=== PATIENT | female | born 1945 | race Two or more races ===

== ENCOUNTER 2018-09-05 01:16 | Emergency (ER) | payer OTHER ==
[~2018-09-05] VITALS: Ht 157.5 cm; Wt 90.7 kg
[2018-09-05 01:35] VITALS: Ht 157.5 cm; Wt 90.7 kg
[2018-09-05 02:14] LABS: UA SPECIFIC GRAVITY <=1.005 (1.005-1.035); microscopic required? YES; urine erythrocyte NEGATIVE (NEGATIVE)
[2018-09-05 02:20] LABS: CALCIUM 8.6 mg/dL (8.5-10.1); CARBON DIOXIDE 24.7 mmol/L (21-32); CHLORIDE SERUM 101 mmol/L (98-107); GLUCOSE SERUM 197 mg/dL (74-106); POTASSIUM SERUM 4.1 mmol/L (3.5-5.1); SODIUM SERUM 135 mmol/L (136-145)
[2018-09-05 02:25] LABS: ALKALINE PHOSPHATASE 56 U/L (46-116); ALT/SGPT 69 U/L (14-59); AST/SGOT 43 U/L (15-37); BILIRUBIN TOTAL 0.34 mg/dL (0.20-1.00); LIPASE 118 IU/L (73-393); TOTAL PROTEIN, SERUM 6.8 g/dL (6.4-8.2)
[2018-09-05 02:26] LABS: BASOPHIL % 0.1 % (0-2)
[2018-09-05 02:27] LABS: PLATELET COUNT 470 x10^3mcL (130-400); RED CELL DISTRIBUTION WIDTH 24.1 % (11.5-14.5)
[2018-09-05 02:44] LABS: rbc morphology (normal/abnorm) ABNORMAL (NORMAL); tear drop cell (dacryocyte) 1+
[2018-09-05 04:18] VITALS: BP 122/59
== END 2018-09-05 04:18 | disposition home or self-care (01) ==
LOC: ED 01:16
PROVIDERS: Emergency Medicine
DX: K56.7 Ileus, unspecified (principal); I10 Essential (primary) hypertension; E11.9 Type 2 diabetes mellitus without complications; E78.00 Pure hypercholesterolemia, unspecified; Z98.890 Other specified postprocedural states; Z88.6 Allergy status to analgesic agent; Z88.1 Allergy status to other antibiotic agents
CPT/HCPCS: J2270; J2405; J7030; Q9967

== ENCOUNTER 2018-09-26 | Emergency (ER) | payer OTHER | END 2018-09-26 03:35 | disposition home or self-care (01) | LOC: ED ==

== ENCOUNTER 2018-10-04 22:36 | Emergency (ER) | payer OTHER ==
[~2018-10-04] VITALS: Ht 157.5 cm; Wt 101.6 kg
[2018-10-04 23:02] VITALS: Ht 157.5 cm; Wt 101.6 kg
[2018-10-05 00:07] LABS: BASOPHIL % 0.4 % (0-2); PLATELET COUNT 330 x10^3mcL (130-400)
[2018-10-05 00:08] LABS: RED CELL DISTRIBUTION WIDTH 24.2 % (11.5-14.5)
[2018-10-05 00:12] LABS: CALCIUM 8.6 mg/dL (8.5-10.1); CARBON DIOXIDE 17.5 mmol/L (21-32); CHLORIDE SERUM 99 mmol/L (98-107); CREATININE SERUM 1.1 mg/dL (0.6-1.0); GLUCOSE SERUM 214 mg/dL (74-106); POTASSIUM SERUM 4.4 mmol/L (3.5-5.1); SODIUM SERUM 132 mmol/L (136-145)
[2018-10-05 00:17] LABS: ALBUMIN 3.4 g/dL (3.4-5.0); ALKALINE PHOSPHATASE 56 U/L (46-116); ALT/SGPT 93 U/L (14-59); AST/SGOT 35 U/L (15-37); BILIRUBIN TOTAL 0.2 mg/dL (0.20-1.00); TOTAL PROTEIN, SERUM 6.9 g/dL (6.4-8.2)
[2018-10-05 02:43] VITALS: BP 165/79
== END 2018-10-05 02:43 | disposition home or self-care (01) ==
LOC: ED 22:36
PROVIDERS: Emergency Medicine
DX: R60.0 Localized edema (principal); N39.0 Urinary tract infection, site not specified; I10 Essential (primary) hypertension; E11.9 Type 2 diabetes mellitus without complications; E78.00 Pure hypercholesterolemia, unspecified; Z88.5 Allergy status to narcotic agent; Z88.8 Allergy status to other drugs, medicaments and biological substances; Z90.49 Acquired absence of other specified parts of digestive tract
CPT/HCPCS: 36415; J1885; Q0092

== ENCOUNTER 2018-10-29 20:28 | Emergency (ER) | payer OTHER ==
[~2018-10-29] VITALS: Ht 157.5 cm; Wt 90.7 kg
[2018-10-29 20:50] VITALS: Ht 157.5 cm; Wt 90.7 kg
[2018-10-29 21:55] LABS: BASOPHIL % 0.9 % (0-2)
[2018-10-29 21:58] LABS: PLATELET COUNT 432 x10^3mcL (130-400)
[2018-10-29 22:20] LABS: rbc morphology (normal/abnorm) ABNORMAL (NORMAL)
[2018-10-29 22:37] LABS: ALKALINE PHOSPHATASE 62 U/L (46-116); ALT/SGPT 47 U/L (14-59); AST/SGOT 21 U/L (15-37); BILIRUBIN TOTAL 0.19 mg/dL (0.20-1.00); CARBON DIOXIDE 24.2 mmol/L (21-32); CHLORIDE SERUM 98 mmol/L (98-107); GLUCOSE SERUM 167 mg/dL (74-106); POTASSIUM SERUM 3.6 mmol/L (3.5-5.1); SODIUM SERUM 125 mmol/L (136-145); TOTAL PROTEIN, SERUM 6.6 g/dL (6.4-8.2)
[2018-10-29 23:45] VITALS: BP 147/83
[2018-10-30 00:28] LABS: UA SPECIFIC GRAVITY <=1.005 (1.005-1.035); microscopic required? YES; urine erythrocyte 3+ (NEGATIVE)
== END 2018-10-30 01:27 | disposition home or self-care (01) ==
LOC: ED 20:28
PROVIDERS: Emergency Medicine
DX: A41.89 Other specified sepsis (principal); N39.0 Urinary tract infection, site not specified; I10 Essential (primary) hypertension; E11.9 Type 2 diabetes mellitus without complications; E78.00 Pure hypercholesterolemia, unspecified; Z90.49 Acquired absence of other specified parts of digestive tract; Z88.8 Allergy status to other drugs, medicaments and biological substances
CPT/HCPCS: J0696; J2270; J2405; Q0092

== ENCOUNTER 2018-12-09 11:38 | Emergency (ER) | payer OTHER ==
[~2018-12-09] VITALS: Ht 157.5 cm; Wt 95.3 kg
[2018-12-09 11:45] VITALS: Ht 157.5 cm; Wt 95.3 kg
[2018-12-09 12:30] LABS: CALCIUM 9.3 mg/dL (8.5-10.1); CARBON DIOXIDE 24.8 mmol/L (21-32); CHLORIDE SERUM 99 mmol/L (98-107); CREATININE SERUM 0.9 mg/dL (0.6-1.0); GLUCOSE SERUM 285 mg/dL (74-106); SODIUM SERUM 136 mmol/L (136-145)
[2018-12-09 12:32] LABS: BASOPHIL % 1.4 % (0-2); PLATELET COUNT 385 x10^3mcL (130-400)
[2018-12-09 12:35] LABS: RED CELL DISTRIBUTION WIDTH 18.9 % (11.5-14.5)
[2018-12-09 12:37] LABS: ALBUMIN 3.4 g/dL (3.4-5.0); ALKALINE PHOSPHATASE 55 U/L (46-116); ALT/SGPT 50 U/L (14-59); AST/SGOT 18 U/L (15-37); BILIRUBIN TOTAL 0.28 mg/dL (0.20-1.00); CHOLESTEROL 187 mg/dL (<200); CHOLESTEROL/HDL RATIO 4.1; HDL CHOLESTEROL 46 mg/dL (40-60); LIPASE 109 IU/L (73-393); TOTAL PROTEIN, SERUM 7.2 g/dL (6.4-8.2)
[2018-12-09 12:39] LABS: TRIGLYCERIDES 300 mg/dL (<150)
[2018-12-09 12:42] LABS: T3 TOTAL 1.02 ng/mL
[2018-12-09 13:05] LABS: microscopic required? YES; urine erythrocyte TRACE (NEGATIVE)
[2018-12-09] MEDS ORDERED: PROCHLORPERAZIN10 MG PO (13:14)
[2018-12-09] MEDS ORDERED: NORCO 10-325 T1 EACH PO (13:15)
[2018-12-09 13:16] LABS: FREE T4 1.3 ng/dL (0.76-1.46); FREE THYROXINE INDEX 3.5 ug/dL (1.4-4.5); T4(THYROXINE) 9.1 ug/dL (4.7-13.3)
[2018-12-09] MEDS ORDERED: CIPRO500 MG PO (13:16)
[2018-12-09] MEDS ORDERED: GOOD SENSE OMEP20 MG PO (13:16)
[2018-12-09] MEDS ORDERED: METFORMIN HCL850 MG PO (13:16)
[2018-12-09] MEDS ORDERED: GABAPENTIN400 M1 (13:16)
[2018-12-09] MEDS ORDERED: NOR10 PO (13:17)
[2018-12-09] MEDS ORDERED: ZESTRIL20 MG PO (13:17)
[2018-12-09] MEDS ORDERED: PANTOPRAZOLE SO40 M1 PO (13:17)
[2018-12-09] MEDS ORDERED: CYMBALTA60 M1 PO (13:18)
[2018-12-09] MEDS ORDERED: LIPITOR40 MG PO (13:18)
[2018-12-09] MEDS ORDERED: SYNTHROID0.05 MG PO (13:18)
[2018-12-09] MEDS ORDERED: POTASSIUM CHLO10 MEQ PO (13:19)
[2018-12-09] MEDS ORDERED: HYOSCYAMINE0.125 MG PO ×2 (13:19→13:20)
[2018-12-09 15:31] VITALS: BP 129/62
== END 2018-12-09 15:31 | disposition home or self-care (01) ==
LOC: ED 11:38
PROVIDERS: Specialist
DX: T40.2X5A Adverse effect of other opioids, initial encounter (principal); N39.0 Urinary tract infection, site not specified; E11.65 Type 2 diabetes mellitus with hyperglycemia; E87.6 Hypokalemia; I10 Essential (primary) hypertension; E78.00 Pure hypercholesterolemia, unspecified; Z90.49 Acquired absence of other specified parts of digestive tract; Z88.5 Allergy status to narcotic agent; Y92.89 Other specified places as the place of occurrence of the external cause
CPT/HCPCS: 83880; 84439; J0696; J1200; J2405; J7030; J7060; Q0092

== ENCOUNTER 2018-12-14 21:08 | Emergency (ER) | payer OTHER ==
[~2018-12-14] VITALS: Ht 157.5 cm; Wt 93.0 kg
[~2018-12-14 21:08] MED LIST: CIPRO500 MG PO; CYMBALTA60 M1 PO; GABAPENTIN400 M1; GOOD SENSE OMEP20 MG PO; HYOSCYAMINE0.125 MG PO; LIPITOR40 MG PO; METFORMIN HCL850 MG PO; NOR10 PO; NORCO 10-325 T1 EACH PO; PANTOPRAZOLE SO40 M1 PO; POTASSIUM CHLO10 MEQ PO; PROCHLORPERAZIN10 MG PO; SYNTHROID0.05 MG PO; ZESTRIL20 MG PO
[2018-12-14 21:13] VITALS: Ht 157.5 cm; Wt 93.0 kg
[2018-12-14 21:50] LABS: BASOPHIL % 0.7 % (0-2); PLATELET COUNT 348 x10^3mcL (130-400); RED CELL DISTRIBUTION WIDTH 18.6 % (11.5-14.5)
[2018-12-14 21:56] LABS: CALCIUM 9.8 mg/dL (8.5-10.1); CARBON DIOXIDE 23.7 mmol/L (21-32); CHLORIDE SERUM 95 mmol/L (98-107); CREATININE SERUM 1.1 mg/dL (0.6-1.0); GLUCOSE SERUM 221 mg/dL (74-106); POTASSIUM SERUM 3.6 mmol/L (3.5-5.1); SODIUM SERUM 133 mmol/L (136-145)
[2018-12-14 22:00] LABS: ALBUMIN 3.4 g/dL (3.4-5.0); ALKALINE PHOSPHATASE 47 U/L (46-116); ALT/SGPT 46 U/L (14-59); AST/SGOT 11 U/L (15-37); BILIRUBIN TOTAL 0.3 mg/dL (0.20-1.00); TOTAL PROTEIN, SERUM 7.1 g/dL (6.4-8.2)
[2018-12-14 23:32] VITALS: BP 145/69
== END 2018-12-14 23:32 | disposition home or self-care (01) ==
LOC: ED 21:08
PROVIDERS: Emergency Medicine
DX: R07.89 Other chest pain (principal); R11.0 Nausea; R42 Dizziness and giddiness; I10 Essential (primary) hypertension; E11.9 Type 2 diabetes mellitus without complications; E78.00 Pure hypercholesterolemia, unspecified; Z98.890 Other specified postprocedural states; Z88.8 Allergy status to other drugs, medicaments and biological substances
CPT/HCPCS: J1885; J2405; Q0092

== ENCOUNTER 2018-12-22 18:16 | Inpatient (IN) | payer OTHER ==
[~2018-12-22] VITALS: Ht 157.5 cm; Wt 97.7 kg
--- NOTE | 2018-12-22 18:31 | NUR ---
PATIENT BIB [facility]. PER [facility], STATES THAT PATIENT HAS A CONSTANT EPIGASTRIC PAIN. PER [facility], THEY STATE THAT PATIENT SLIPPED AND FELL AT HOME. PATIENT HAS CHANTAL NOTED. PATIENT STATES WHEN SHE ATE SOUP TODAY, THE EPIGASTRIC PAIN HAD STARTED.
[2018-12-22 18:36] VITALS: Ht 157.5 cm; Wt 97.7 kg
--- NOTE | 2018-12-22 18:49 | NUR ---
PT RESTING IN POSITION OF COMFORT. NO ACUTE DISTRESS NOTED AT THIS MOMENT. PT CALM AND COOPERATIVE, AAOX4, RESPS E/U, SKIN IS PINK, WARM AND DRY.
--- NOTE | 2018-12-22 19:11 | NUR ---
REC'D REPORT FROM ISAIAH SAWYER TO ASSUME CARE.
[2018-12-22 19:19] LABS: PLATELET COUNT 392 x10^3mcL (130-400)
[2018-12-22 19:23] LABS: RED CELL DISTRIBUTION WIDTH 17.7 % (11.5-14.5)
[2018-12-22 19:24] LABS: CALCIUM 9.2 mg/dL (8.5-10.1); CARBON DIOXIDE 26.2 mmol/L (21-32); CHLORIDE SERUM 99 mmol/L (98-107); GLUCOSE SERUM 156 mg/dL (74-106); POTASSIUM SERUM 3.8 mmol/L (3.5-5.1); SODIUM SERUM 135 mmol/L (136-145)
[2018-12-22 19:28] LABS: ALBUMIN 3.3 g/dL (3.4-5.0); ALKALINE PHOSPHATASE 47 U/L (46-116); ALT/SGPT 44 U/L (14-59); AST/SGOT 16 U/L (15-37); BILIRUBIN TOTAL 0.2 mg/dL (0.20-1.00); LIPASE 311 IU/L (73-393)
[2018-12-22 19:38] LABS: UA SPECIFIC GRAVITY <=1.005 (1.005-1.035); microscopic required? YES; urine erythrocyte 2+ (NEGATIVE)
[2018-12-22 19:44] LABS: BAND NEUTROPHIL 1 % (0-10); BASOPHIL 0 % (0-2); MONOCYTE 5 % (0-7); SEGMENTED NEUTROPHILS 61 % (37-75)
[2018-12-22 19:45] LABS: PLATELET MORPHOLOGY PLATELETS NORMAL; rbc morphology (normal/abnorm) NORMAL (NORMAL)
--- NOTE | 2018-12-22 22:00 | NUR ---
[facility]
--- NOTE | 2018-12-22 22:20 | NUR ---
PT BACK FROM CT
--- NOTE | 2018-12-22 23:07 | NUR ---
DR DUBOIS AT BEDSIDE TO UPDATE PT.
[2018-12-23] VITALS (7 sets, daily range): BP systolic 137–163; BP diastolic 56–68
[2018-12-23] MEDS ORDERED: GABAPENTIN100 M2 PO (00:42)
[2018-12-23] MEDS ORDERED: HUMULIN N100 U/1 ML SC (00:43)
[2018-12-23] MEDS ORDERED: INSR SC (00:44)
[2018-12-23] MEDS ORDERED: XARELTO (00:45)
[2018-12-23] MEDS ORDERED: KEFLEX500 M1 PO (00:45)
--- NOTE | 2018-12-23 01:26 | NUR ---
REPORT GIVEN TO PÉREZ SAWYER TO ASSUME CARE.
--- NOTE | 2018-12-23 02:19 | NUR ---
PT TRANSFERRED TO TELE BED 244B VIA [facility] ON MONITOR WITH EMT MANDIE AND RN ESAU AT PT SIDE. PT A&OX4,NO ACUTE DSITRESS NOTED, DRINKING APPLE JUICE EN ROUTE. PT TRANSFERRED WITHOUT INCIDENCE.
--- NOTE | 2018-12-23 02:51 | NUR ---
RECEIVED PT FROM ED, ACCOMPANIED BY ER NURSE AND PT,S SPOUSE. A/O X4. BRAZILIAN SPEAKING. ADMITTED WITH COMPLAINTS OF ABD. PAIN AND DIARRHEA. DENIES ABD. PAIN OR ANY DISCOMFORT AT THIS TIME.ABD. SOFT, OBESE, BS ACTIVE, NO N/V NOTED. RESP.EVEN AND UNLABORED. LUNG SOUNDS CLEAR BILAT. ON ROOM AIR, NO ACTIVE DISTRESS NOTED. HL TO LAC, INTACT AND PATENT. SKIN WARM AND DRY TO TOUCH. WITH GEN. WEAKNESS, AMBULATES WITH WALKER AT HOME. ORIENTED TO ROOM AND SURROUNDINGS. BED IN LOW POSITION.CALL LIGHT WITHIN REACH. WILL CONTINUE TO MONITOR.
--- NOTE | 2018-12-23 04:01 | NUR ---
ADM. ORDERS RECEIVED FROM DR MCKAY.STARTED PT ON IVF, NS AT 70ML/HR, INFUSING VIA LT AC, SITE CLEAR. WILL CONTINUE TO MONITOR.
--- NOTE | 2018-12-23 05:42 | NUR ---
COMPLAINED OF GEN. BODY PAIN. 10/31, MEDICATED WITH MOPHINE SULFATE IV ORDERED. WILL CONTINUE TO MONITOR.
[2018-12-23 06:15] LABS: BASOPHIL % 1.2 % (0-2); PLATELET COUNT 346 x10^3mcL (130-400)
--- NOTE | 2018-12-23 06:21 | NUR ---
AFEBRILE AND VITAL SIGNS STABLE. RESP. EVEN AND UNLABORED. ON ROOM AIR, NO ACUTE DISTRESS NOTED. PT RESTING QUIETLY IN BED, STATES PAIN RELIEF AT THIS TIME. IVF INTACT AND INFUSING WELL, SITE CLEAR. CALL LIGHT WITHIN REACH. WILL CONTINUE TO MONITOR.
[2018-12-23 06:58] LABS: ALKALINE PHOSPHATASE 49 U/L (46-116); ALT/SGPT 33 U/L (14-59); AST/SGOT 10 U/L (15-37); CALCIUM 8.8 mg/dL (8.5-10.1); CARBON DIOXIDE 23.4 mmol/L (21-32); CHLORIDE SERUM 103 mmol/L (98-107); CREATININE SERUM 0.9 mg/dL (0.6-1.0); GLUCOSE SERUM 202 mg/dL (74-106); POTASSIUM SERUM 4.4 mmol/L (3.5-5.1); SODIUM SERUM 137 mmol/L (136-145)
[2018-12-23 07:00] LABS: RED CELL DISTRIBUTION WIDTH 17.8 % (11.5-14.5)
[2018-12-23 07:06] LABS: ALBUMIN 2.9 g/dL (3.4-5.0)
--- NOTE | 2018-12-23 07:35 | NUR ---
PATIENT RESTING IN BED, NO ACUTE DISTRESS NOTED AT THIS TIME. PATIENT DENIES PAIN. PATIENT IS A/OX4, DENIES DIZZINESS & HORNER. TELE MONITOR IN PLACE. PATIENT DENIES SOB, ON ROOM AIR. PATIENT IS AMBULATORY WITH ASSIST. CORNEJO CATH IN PLACE, DRAINING TO GRAVITY, YELLOW URINE NOTED. NS IV INFUSING TO LAC AT 70ML/HR, IV SITE CDI & PATENT, NO S/S OF INFILTRATION.
--- NOTE | 2018-12-23 10:00 | NUR ---
DR MCKAY AWARE PATIENT BP WAS ELEVATED TO 158/[address] MCKAY GAVE TELEPHONE ORDER/ READBACK TO CONTINUE PATIENTS HOME MEDICATIONS LISINOPRIL, NORVASC, SYNTHROID, LIPITOR, AND METFORMIN (SEE EMAR). DR. MCKAY GAVE TORB FOR DIET CHANGE TO [facility], AND ADD A1C TO MORNING LABS, AND ADD AN ORDER SET OF INSULIN SLIDING SCALE. WILL CARRY OUT ORDERS AT THIS TIME.
--- NOTE | 2018-12-23 12:30 | NUR ---
DR. MCKAY GAVE TELEPHONE ORDER/ READBACK FOR DISCHARGE. DR. MCKAY WILL UPDATE PLAN OF CARE IN 3-4HRS. PATIENT AWARE THAT THEY WILL BE GOING HOME WITH ABXS, AND WILL NEED TO FOLLOW UP WITH DR. THACKER FOR COLONOSCOPY IN 2-3WEEKS. WILL FOLLOW UP WITH D/C.
[2018-12-23] MEDS ORDERED: FLA500 PO (16:57)
[2018-12-23] MEDS ORDERED: CIPRO500 MG PO (16:58)
--- NOTE | 2018-12-23 18:05 | NUR ---
PATIENT WAS D/C HOME, AT BEDSIDE. PATIENT RECEIVED COPY OF D/C INSTRUCTION, PATIENT UNDERSTANDS AND AGREES WITH POC & D/C INSTRUCTIONS INCLUDING FOLLOW UP WITH PCP IN 7 DAYS & GI IN 2-3 WEEKS, AND MEDICATIONS. PATIENT & FAMILY AWARE TO HOLD FLUCONAZOLE,PROCHILORPERAZINE, AND DULOXETINE WHILE ON CIPRO, AND RESUME AFTER ABX COMPLETED. ALL QUESTIONS & CONCERNS ADDRESSED AT THIS TIME. TELE MONITOR & ARMBANDS REMOVED. IV TO LAC REMOVED, CATH INTACT. PATIENT TAKEN DOWN VIA WHEELCHAIR BY MULTICUT LINE OPERATOR.
== END 2018-12-23 18:05 | disposition home or self-care (01) | DRG 690 ==
LOC: ED 18:16 → DU 12-23 00:31
PROVIDERS: Emergency Medicine; ADMIT Internal Medicine
DX: N39.0 Urinary tract infection, site not specified (principal); A08.4 Viral intestinal infection, unspecified; E11.65 Type 2 diabetes mellitus with hyperglycemia; I10 Essential (primary) hypertension; E78.5 Hyperlipidemia, unspecified; Z79.84 Long term (current) use of oral hypoglycemic drugs; Z88.5 Allergy status to narcotic agent; Z90.49 Acquired absence of other specified parts of digestive tract
CPT/HCPCS: 82962; 87046; 87046-59; G0378; J0690; J0696; J2270; J2405; J3490; J7030; J7040; Q0092

== ENCOUNTER 2019-01-08 16:03 | Emergency (ER) | payer OTHER ==
[~2019-01-08] VITALS: Ht 157.5 cm; Wt 93.0 kg
[~2019-01-08 16:03] MED LIST changes: +FLA500 PO; +GABAPENTIN100 M2 PO; +HUMULIN N100 U/1 ML SC; +INSR SC; +KEFLEX500 M1 PO; +XARELTO
[2019-01-08 16:18] VITALS: Ht 157.5 cm; Wt 93.0 kg
[2019-01-08 19:30] VITALS: BP 147/93
== END 2019-01-08 19:30 | disposition home or self-care (01) ==
LOC: ED 16:03
DX: S52.602A Unspecified fracture of lower end of left ulna, initial encounter for closed fracture (principal); I10 Essential (primary) hypertension; E11.9 Type 2 diabetes mellitus without complications; E78.00 Pure hypercholesterolemia, unspecified; Z88.5 Allergy status to narcotic agent; Z90.49 Acquired absence of other specified parts of digestive tract; W18.30XA Fall on same level, unspecified, initial encounter; Y93.89 Activity, other specified; Y92.89 Other specified places as the place of occurrence of the external cause; Y99.8 Other external cause status
CPT/HCPCS: A4570; J2270; Q0092; Q0162

== ENCOUNTER 2019-01-20 22:36 | Emergency (ER) | payer OTHER ==
[~2019-01-20] VITALS: Ht 162.6 cm; Wt 72.6 kg
[2019-01-20 22:55] VITALS: Ht 162.6 cm; Wt 72.6 kg
[2019-01-20 23:41] LABS: BASOPHIL % 0.4 % (0-2); PLATELET COUNT 321 x10^3mcL (130-400)
[2019-01-20 23:42] LABS: RED CELL DISTRIBUTION WIDTH 16.9 % (11.5-14.5)
[2019-01-21 00:06] LABS: CARBON DIOXIDE 21.5 mmol/L (21-32); CHLORIDE SERUM 97 mmol/L (98-107); CREATININE SERUM 0.9 mg/dL (0.6-1.0); GLUCOSE SERUM 223 mg/dL (74-106); POTASSIUM SERUM 3.5 mmol/L (3.5-5.1); SODIUM SERUM 132 mmol/L (136-145)
[2019-01-21 00:11] LABS: ALKALINE PHOSPHATASE 58 U/L (46-116); ALT/SGPT 78 U/L (14-59); AST/SGOT 54 U/L (15-37); BILIRUBIN TOTAL 0.3 mg/dL (0.20-1.00); LIPASE 49 IU/L (73-393); TOTAL PROTEIN, SERUM 6.3 g/dL (6.4-8.2)
[2019-01-21 00:12] LABS: ALBUMIN 2.9 g/dL (3.4-5.0)
[2019-01-21 02:38] VITALS: BP 130/78
== END 2019-01-21 02:30 | disposition home or self-care (01) ==
LOC: ED 22:36
PROVIDERS: Emergency Medicine
DX: K52.9 Noninfective gastroenteritis and colitis, unspecified (principal); I10 Essential (primary) hypertension; E11.9 Type 2 diabetes mellitus without complications; E78.00 Pure hypercholesterolemia, unspecified; Z90.49 Acquired absence of other specified parts of digestive tract; Z88.5 Allergy status to narcotic agent
CPT/HCPCS: J1885; J2405

== ENCOUNTER 2019-01-24 21:54 | Emergency (ER) | payer OTHER ==
[~2019-01-24] VITALS: Ht 157.5 cm; Wt 90.7 kg
[2019-01-25 02:25] VITALS: BP 131/59
== END 2019-01-25 02:25 | disposition home or self-care (01) ==
LOC: ED 21:54
DX: S76.011A Strain of muscle, fascia and tendon of right hip, initial encounter (principal); S09.8XXA Other specified injuries of head, initial encounter; I10 Essential (primary) hypertension; E11.9 Type 2 diabetes mellitus without complications; E78.00 Pure hypercholesterolemia, unspecified; Z46.6 Encounter for fitting and adjustment of urinary device; Z90.49 Acquired absence of other specified parts of digestive tract; Z88.8 Allergy status to other drugs, medicaments and biological substances; W18.39XA Other fall on same level, initial encounter; Y93.89 Activity, other specified; Y92.89 Other specified places as the place of occurrence of the external cause; Y99.8 Other external cause status
CPT/HCPCS: J1885; Q0092

== ENCOUNTER 2019-01-25 07:55 | Emergency (ER) | payer OTHER ==
[~2019-01-25] VITALS: Ht 157.5 cm; Wt 68.9 kg
[2019-01-25 08:14] VITALS: Ht 157.5 cm; Wt 68.9 kg
[2019-01-25 10:50] VITALS: BP 124/60
== END 2019-01-25 10:50 | disposition home or self-care (01) ==
LOC: ED 07:55
DX: S70.01XA Contusion of right hip, initial encounter (principal); R51 Headache; I10 Essential (primary) hypertension; E11.9 Type 2 diabetes mellitus without complications; E78.00 Pure hypercholesterolemia, unspecified; Z90.49 Acquired absence of other specified parts of digestive tract; Z88.5 Allergy status to narcotic agent; W18.39XA Other fall on same level, initial encounter; Y93.89 Activity, other specified; Y92.89 Other specified places as the place of occurrence of the external cause; Y99.8 Other external cause status
CPT/HCPCS: J3010

== ENCOUNTER 2019-01-27 23:02 | Emergency (ER) | payer OTHER ==
[~2019-01-27] VITALS: Ht 157.5 cm; Wt 73.5 kg
[2019-01-27 23:31] VITALS: Ht 157.5 cm; Wt 73.5 kg
[2019-01-28 02:13] VITALS: BP 129/65
== END 2019-01-28 02:13 | disposition home or self-care (01) ==
LOC: ED 23:02
DX: S30.0XXA Contusion of lower back and pelvis, initial encounter (principal); M47.897 Other spondylosis, lumbosacral region; M47.894 Other spondylosis, thoracic region; E78.00 Pure hypercholesterolemia, unspecified; E11.9 Type 2 diabetes mellitus without complications; Z88.5 Allergy status to narcotic agent; Z90.49 Acquired absence of other specified parts of digestive tract; W17.89XA Other fall from one level to another, initial encounter; Y93.89 Activity, other specified; Y92.89 Other specified places as the place of occurrence of the external cause; Y99.8 Other external cause status
CPT/HCPCS: 72072; J1885

== ENCOUNTER 2019-02-17 06:24 | Emergency (ER) | payer OTHER ==
[~2019-02-17] VITALS: Ht 157.5 cm; Wt 88.5 kg
[2019-02-17 06:31] VITALS: Ht 157.5 cm; Wt 88.5 kg
[2019-02-17 07:25] LABS: BASOPHIL % 0.6 % (0-2)
[2019-02-17 07:34] LABS: PLATELET COUNT 409 x10^3mcL (130-400); RED CELL DISTRIBUTION WIDTH 17.2 % (11.5-14.5)
[2019-02-17 07:35] LABS: CALCIUM 8.6 mg/dL (8.5-10.1); CARBON DIOXIDE 27.3 mmol/L (21-32); CHLORIDE SERUM 98 mmol/L (98-107); CREATININE SERUM 0.9 mg/dL (0.6-1.0); GLUCOSE SERUM 272 mg/dL (74-106); POTASSIUM SERUM 4.1 mmol/L (3.5-5.1); SODIUM SERUM 133 mmol/L (136-145)
[2019-02-17 07:42] LABS: ALKALINE PHOSPHATASE 81 U/L (46-116); ALT/SGPT 30 U/L (14-59); AST/SGOT 21 U/L (15-37); BILIRUBIN TOTAL 0.3 mg/dL (0.20-1.00); LIPASE 231 IU/L (73-393); TOTAL PROTEIN, SERUM 6.5 g/dL (6.4-8.2)
[2019-02-17 07:50] LABS: ALBUMIN 2.7 g/dL (3.4-5.0)
[2019-02-17 08:49] LABS: UA SPECIFIC GRAVITY <=1.005 (1.005-1.035); microscopic required? YES; urine erythrocyte 2+ (NEGATIVE)
[2019-02-17 09:30] VITALS: BP 151/72
== END 2019-02-17 09:30 | disposition home or self-care (01) ==
LOC: ED 06:24
PROVIDERS: Emergency Medicine
DX: M54.5 Low back pain (principal); G89.29 Other chronic pain; W01.0XXA Fall on same level from slipping, tripping and stumbling without subsequent striking against object, initial encounter; Y93.89 Activity, other specified; Y92.89 Other specified places as the place of occurrence of the external cause; Y99.8 Other external cause status
CPT/HCPCS: 36415; 82962; J2270; Q0162

== ENCOUNTER 2019-02-18 13:10 | Observation (INO) | payer OTHER ==
[~2019-02-18] VITALS: Ht 167.6 cm; Wt 89.8 kg
[2019-02-18 13:20] VITALS: Ht 167.6 cm; Wt 89.8 kg
--- NOTE | 2019-02-18 13:26 | NUR ---
PLACED IN H1 FOR EVAL.
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
--- NOTE | 2019-02-18 14:05 | NUR ---
MEDICATED PER MD ORDERS
[2019-02-18 14:23] LABS: microscopic required? YES; urine erythrocyte 1+ (NEGATIVE)
[2019-02-18 15:17] LABS: BASOPHIL % 0.5 % (0-2)
[2019-02-18 15:31] LABS: PLATELET COUNT 445 x10^3mcL (130-400)
[2019-02-18 15:46] LABS: ALBUMIN 3.2 g/dL (3.4-5.0); BILIRUBIN TOTAL 0.26 mg/dL (0.20-1.00); CALCIUM 8.9 mg/dL (8.5-10.1); CARBON DIOXIDE 29.3 mmol/L (21-32); CHLORIDE SERUM 97 mmol/L (98-107); CREATININE SERUM 0.8 mg/dL (0.6-1.0); GLUCOSE SERUM 223 mg/dL (74-106); POTASSIUM SERUM 4.3 mmol/L (3.5-5.1); SODIUM SERUM 134 mmol/L (136-145); TOTAL PROTEIN, SERUM 7.5 g/dL (6.4-8.2)
[2019-02-18 15:47] LABS: ALKALINE PHOSPHATASE 31 U/L (46-116); ALT/SGPT 31 U/L (14-59); AMYLASE 32 U/L (25-115); AST/SGOT 24 U/L (15-37); LIPASE 172 IU/L (73-393)
--- NOTE | 2019-02-18 15:47 | NUR ---
MEDICATED PER MD ORDERS
--- NOTE | 2019-02-18 15:51 | NUR ---
BP CHECKED PRIOR TO MORPHINE ADMINISTRATION. WILL CONTINUE TO MONITOR.
--- NOTE | 2019-02-18 17:02 | NUR ---
REPORT GIVEN TO TAMMIE SAWYER.
--- NOTE | 2019-02-18 17:15 | NUR ---
RECEIVED PT VIA GURNEY FROM E/D, ACCOMPANIED BY TRANSPORTER AND PT'S (ALSO CAR[employer] AND RAMP SERVICES MANAGER), CHARLES HORN. PT A/A/O X 2 (PERSON, PURPOSE) W/ EPISODES OF CONFUSION, VERY ANXIOUS, AMB REPEATED VERBALIZATION OF HEALTH CONCERNS AND RESTLESSNESS. PT W/ GENERALIZED WEAKNESS BUT ABLE TO AMBULATE W/ ASSIST, AMBULATES W/ WALKER @ HOME, FELL 01/18/19 AND 02/10/19, C/O INTERMITTENT SHARP LOWER BACK PAIN 10/10, EXACERBATED BY MOVEMENT AND WALKING, RELIEVED BY PAIN MEDICATION; STATED THAT PT TAKES HER NORCO HOURLY AT HOME; FALL RISK PROTOCOL IN PLACE. +DIZZINESS, DENIES CHEST PAIN OR DISCOMFORT AT THIS TIME. LYLA RADIAL PULSES PRESENT, LYLA PEDAL PULSES WEAK, TRACE EDEMA TO BLE, CAP REFILL < 3 SECS, SCD BY BEDSIDE. NO ACUTE RESPIRATORY DISTRESS NOTED. ABD FIRM, DISTENDED, NORMOACTIVE BOWEL SOUNDS X 4 QUADS, LAST BM 02/16/19, HARD; +NAUSEA, C/O INTERMITTENT SHARP PAIN TO LUQ 10/10, RELIEVED ONLY BY PAIN MEDICATIONS; STATED THAT PT HAS EPISODES OF DIFFICULTY SWALLOWING WHEN IN PAIN. PT W/ CORNEJO CATH 16FR, 10CC BALLOON INSTALLED 01/28/19, AND WAS INITIATED BACK IN 04/2018 "FOR DIABETES"; F/C DRAINING CLEAR YELLOW URINE, DENIES DYSURIA. NOTED CLUSTER OF SCABS TO ANA MARIA TRACY. IV SITE RH 22G, CDI. ORIENTED PT AND TO ROOM, BED CONTROLS, CALL LIGHT SYSTEM. SIDE RAILS UP X 2, BED IN LOW POSITION. WILL ENDORSE TO DIGNA MORTENSEN.
[2019-02-18 18:03] VITALS: BP 192/94
--- NOTE | 2019-02-18 18:33 | NUR ---
PT STABLE AT THIS TIME WITH NO C/O SOB. A/O X2, AT BEDSIDE. IV INTACT AND PATENT WITH NO REDNESS OR INFLAMMATION NOTED. SAFETY PRECAUTIONS IN PLACE, CALL LIGHT WITHIN REACH, WILL ENDORSE TO NIGHT NURSE.
--- NOTE | 2019-02-18 18:48 | NUR ---
PAGED DR RIVERA TO GET HTN MEDICATIONS FOR NOW AND TO CHECK ON PAIN MEDICATION ORDER. WILL ENDORSE TO NIGHT NURSE IF HE DOES NOT CALL BACK IN TIME.
--- NOTE | 2019-02-18 19:35 | NUR ---
RECEIVED PT IN BED AWAKE, ALERT,ORIENTED X4. LUNG SOUNDS CLEAR. NO SOB NOTED. BOWEL SOUNDS ACTIVE. PT C/O BACK PAIN AND REQUESTING FOR PAIN MED. W/ CORNEJO CATH DRAINING YELLOW URINE. W/ HL TO RT HAND INTACT. CALL LIGHT W/IN REACH.
--- NOTE | 2019-02-18 20:00 | NUR ---
CALLED DR. RIVERA TO VERIFY REGARDING ALLERGY AND PAIN MEDS.
--- NOTE | 2019-02-18 21:10 | NUR ---
VERIFIED W/ PATIENT REGARDING ALLERGY TO HYDROCODONE. PER PT SHE IS NOT ALLERGIC TO VICODIN AND STATED SHE'S BEEN TAKING VICODIN AT HOME AND IN THE HOSPITAL. INFORMED PHARMACIST.
--- NOTE | 2019-02-18 21:18 | NUR ---
PT MEDICATED W/ AMBIEN 5 MG PO FOR SLEEP.
[2019-02-18 21:58] VITALS: BP 113/69
--- NOTE | 2019-02-18 22:30 | NUR ---
PT ASLEEP SOUNDLY AFTER TAKING AMBIEN.
--- NOTE | 2019-02-19 03:16 | NUR ---
PT REMAINS ASLEEP. NO C/O DISCOMFORT AT THIS TIME.
--- NOTE | 2019-02-19 04:54 | NUR ---
PT SLEPT THROUGH THE NIGHT. SHE HAS NO C/O PAIN AT THIS TIME. SHE WAS MEDICATED FOR PAIN W/ LEVSIN ORDERED. CORNEJO CATHINTACT. ALL NEEDS ATTENDED TO.
[2019-02-19 05:40] VITALS: BP 137/66
[2019-02-19 06:50] LABS: BASOPHIL % 0.5 % (0-2); PLATELET COUNT 358 x10^3mcL (130-400)
[2019-02-19 06:56] LABS: ALKALINE PHOSPHATASE 82 U/L (46-116); ALT/SGPT 24 U/L (14-59); AST/SGOT 27 U/L (15-37); BILIRUBIN TOTAL 0.36 mg/dL (0.20-1.00); CALCIUM 8.4 mg/dL (8.5-10.1); CARBON DIOXIDE 27.5 mmol/L (21-32); CHLORIDE SERUM 100 mmol/L (98-107); CREATININE SERUM 0.8 mg/dL (0.6-1.0); GLUCOSE SERUM 215 mg/dL (74-106); POTASSIUM SERUM 4.3 mmol/L (3.5-5.1); SODIUM SERUM 136 mmol/L (136-145); TOTAL PROTEIN, SERUM 6.4 g/dL (6.4-8.2)
[2019-02-19 06:57] LABS: RED CELL DISTRIBUTION WIDTH 18.1 % (11.5-14.5)
[2019-02-19 06:59] LABS: ALBUMIN 2.6 g/dL (3.4-5.0)
--- NOTE | 2019-02-19 07:09 | NUR ---
PT C/O BACK PAIN 01/31. PERCOCET 1 TAB PO GIVEN. ENDORSED TO AM NURSE TO REASSESS PAIN LEVEL AFTER AN HOUR.
--- NOTE | 2019-02-19 07:25 | NUR ---
REPORT RECEIVED FROM COAGULATING OPERATOR RN. PATIENT RESTING IN BED. NO SIGNS OF DISTRESS NOTED. WILL CONTINUE TO MONITOR. CALL LIGHT WITHIN REACH.
[2019-02-19 09:01] VITALS: BP 139/73
[2019-02-19 12:26] VITALS: BP 139/73
--- NOTE | 2019-02-19 13:08 | NUR ---
DISCHARGE ORDER BY DR. RIVERA. PATIENT APPEARS STABLE. NO SIGNS OF DISTRESS. NO C/O PAIN. PATIENT BELONGINGS AT BEDSIDE. DISCHARGE PAPERWORK PROVIDED. EDUCATION PROVIDED FOR THE PATIENT. CORNEJO CATHETER INTACT AND PATENT.
--- NOTE | 2019-02-19 13:19 | NUR ---
CHARLES HORN, , NOTIFIED OF PATIENT BEING DISCHARGED. STATED HE WILL CALL THE SON TO COME PICK THE PATIENT UP. WILL CONTINUE TO MONITOR.
== END 2019-02-19 13:55 | disposition home or self-care (01) | DRG 552 ==
LOC: ED 13:10 → MU 16:19
PROVIDERS: Emergency Medicine; ADMIT Internal Medicine Pulmonary Disease
DX: M47.894 Other spondylosis, thoracic region (principal); M84.48XA Pathological fracture, other site, initial encounter for fracture; G89.29 Other chronic pain; K59.03 Drug induced constipation; T40.2X5A Adverse effect of other opioids, initial encounter; I10 Essential (primary) hypertension; E78.5 Hyperlipidemia, unspecified; E11.9 Type 2 diabetes mellitus without complications; E03.9 Hypothyroidism, unspecified; E66.9 Obesity, unspecified; Z79.4 Long term (current) use of insulin; Z79.84 Long term (current) use of oral hypoglycemic drugs; Z68.27 Body mass index [BMI] 27.0-27.9, adult; Y92.009 Unspecified place in unspecified non-institutional (private) residence as the place of occurrence of the external cause
CPT/HCPCS: 82962; G0378; J0780; J1815; J1885; J2270; J3010; J3490; Q0162

== ENCOUNTER 2019-02-21 13:09 | Emergency (ER) | payer OTHER ==
[~2019-02-21] VITALS: Ht 157.5 cm; Wt 68.0 kg
[2019-02-21 13:11] VITALS: Ht 157.5 cm; Wt 68.0 kg
[2019-02-21 15:33] VITALS: BP 150/74
== END 2019-02-21 15:59 | disposition home or self-care (01) ==
LOC: ED 13:09
DX: M54.9 Dorsalgia, unspecified (principal); G89.29 Other chronic pain; I10 Essential (primary) hypertension; E11.9 Type 2 diabetes mellitus without complications; E78.00 Pure hypercholesterolemia, unspecified; Z90.49 Acquired absence of other specified parts of digestive tract; Z88.5 Allergy status to narcotic agent

== ENCOUNTER 2019-10-20 09:09 | Emergency (ER) | payer OTHER ==
[~2019-10-20] VITALS: Ht 157.5 cm; Wt 89.8 kg
[2019-10-20 09:16] VITALS: Ht 157.5 cm; Wt 89.8 kg
[2019-10-20 12:14] VITALS: BP 140/114
== END 2019-10-20 12:14 | disposition home or self-care (01) ==
LOC: ED 09:09
DX: S24.109A Unspecified injury at unspecified level of thoracic spinal cord, initial encounter (principal); M54.6 Pain in thoracic spine; M62.838 Other muscle spasm; X58.XXXA Exposure to other specified factors, initial encounter; Y93.89 Activity, other specified; Y92.89 Other specified places as the place of occurrence of the external cause; Y99.8 Other external cause status
CPT/HCPCS: 72072; J1885; Q0092

== ENCOUNTER 2019-10-20 16:40 | Emergency (ER) | payer OTHER ==
[~2019-10-20] VITALS: Ht 157.5 cm; Wt 89.8 kg
[2019-10-20 16:53] VITALS: Ht 157.5 cm; Wt 89.8 kg
[2019-10-20 19:36] VITALS: BP 166/75
== END 2019-10-20 19:36 | disposition home or self-care (01) ==
LOC: ED 16:40
DX: S22.000A Wedge compression fracture of unspecified thoracic vertebra, initial encounter for closed fracture (principal); E11.40 Type 2 diabetes mellitus with diabetic neuropathy, unspecified; I10 Essential (primary) hypertension; E78.00 Pure hypercholesterolemia, unspecified; Z88.6 Allergy status to analgesic agent; X58.XXXA Exposure to other specified factors, initial encounter; Y93.89 Activity, other specified; Y92.89 Other specified places as the place of occurrence of the external cause; Y99.8 Other external cause status
CPT/HCPCS: J2270; J2405

== ENCOUNTER 2020-02-28 10:54 | Observation (INO) | payer OTHER ==
[~2020-02-28] VITALS: Ht 165.1 cm; Wt 101.6 kg
[2020-02-28 11:00] VITALS: Ht 165.1 cm; Wt 101.6 kg
[2020-02-28 11:50] LABS: PLATELET COUNT 224 x10^3mcL (130-400)
[2020-02-28 11:59] LABS: BASOPHIL % 0 % (0-2)
[2020-02-28 12:11] LABS: UA SPECIFIC GRAVITY 1.015 (1.005-1.035); microscopic required? YES; urine erythrocyte TRACE (NEGATIVE)
[2020-02-28 13:38] LABS: CALCIUM 8.3 mg/dL (8.5-10.1); CARBON DIOXIDE 24.8 mmol/L (21-32); CHLORIDE SERUM 95 mmol/L (98-107); CREATININE SERUM 1.8 mg/dL (0.6-1.0); GLUCOSE SERUM 245 mg/dL (74-106); POTASSIUM SERUM 3.5 mmol/L (3.5-5.1); SODIUM SERUM 129 mmol/L (136-145)
[2020-02-28 13:55] LABS: ALKALINE PHOSPHATASE 62 U/L (46-116); ALT/SGPT 65 U/L (14-59); AST/SGOT 40 U/L (15-37); BILIRUBIN TOTAL 0.6 mg/dL (0.20-1.00); TOTAL PROTEIN, SERUM 6.5 g/dL (6.4-8.2)
[2020-02-28 13:56] LABS: ALBUMIN 2.7 g/dL (3.4-5.0)
[2020-02-28] MEDS ORDERED: DULOXETINE HYDR60 MG PO (14:55)
[2020-02-28] MEDS ORDERED: NOVOLOG100 U/ML SC (14:56)
[2020-02-28] MEDS ORDERED: TOUJEO300 U/ML SC (14:58)
[2020-02-28] MEDS ORDERED: LATANOPROST2.5 ML OU (14:59)
[2020-02-28] MEDS ORDERED: MULTIVITAMIN1 SGL PO (15:00)
[2020-02-28] MEDS ORDERED: AMITRIPTYLINE H10 MG PO (15:00)
[2020-02-28] MEDS ORDERED: BETIMOL5 M1 OU (15:01)
[2020-02-28] MEDS ORDERED: ACIDOPHILUS1 EAC2 PO (15:01)
[2020-02-28 16:00] VITALS: BP 109/40
[2020-02-28 17:00] VITALS: BP 137/55
[2020-02-28 21:03] VITALS: BP 151/53
[2020-02-28 22:56] VITALS: BP 177/105
[2020-02-29 04:47] VITALS: BP 118/50
[2020-02-29 07:10] LABS: PLATELET COUNT 215 x10^3mcL (130-400); RED CELL DISTRIBUTION WIDTH 13.7 % (11.5-14.5)
[2020-02-29 07:33] LABS: ALKALINE PHOSPHATASE 70 U/L (46-116); ALT/SGPT 76 U/L (14-59); AST/SGOT 68 U/L (15-37); BILIRUBIN TOTAL 0.74 mg/dL (0.20-1.00); CALCIUM 7.8 mg/dL (8.5-10.1); CARBON DIOXIDE 20.2 mmol/L (21-32); CHLORIDE SERUM 92 mmol/L (98-107); CREATININE SERUM 1.4 mg/dL (0.6-1.0); GLUCOSE SERUM 395 mg/dL (74-106); POTASSIUM SERUM 3.3 mmol/L (3.5-5.1); SODIUM SERUM 126 mmol/L (136-145); TOTAL PROTEIN, SERUM 6.3 g/dL (6.4-8.2)
[2020-02-29 07:37] LABS: ALBUMIN 2.5 g/dL (3.4-5.0)
[2020-02-29 07:48] VITALS: BP 120/61
[2020-02-29 17:00] LABS: SEGMENTED NEUTROPHILS 77 % (37-75)
[2020-02-29 17:01] LABS: BAND NEUTROPHIL 3 % (0-10); MONOCYTE 6 % (0-7); rbc morphology (normal/abnorm) ABNORMAL (NORMAL)
== END 2020-02-29 15:42 | disposition left against medical advice (07) ==
LOC: ED 10:54 → DU 14:24
PROVIDERS: Emergency Medicine; ADMIT Internal Medicine; ATTEND Internal Medicine
DX: N39.0 Urinary tract infection, site not specified (principal); E11.9 Type 2 diabetes mellitus without complications; I10 Essential (primary) hypertension; E03.9 Hypothyroidism, unspecified; E78.5 Hyperlipidemia, unspecified
CPT/HCPCS: 82962; G0378; J0696; J1644; J1815; J1885; J7030; J7060; Q0092

== ENCOUNTER 2020-07-01 22:55 | Inpatient (IN) | payer OTHER ==
[~2020-07-01] VITALS: Ht 157.5 cm; Wt 111.1 kg
[~2020-07-01 22:55] MED LIST changes: +ACIDOPHILUS1 EAC2 PO; +AMITRIPTYLINE H10 MG PO; +BETIMOL5 M1 OU; +DULOXETINE HYDR60 MG PO; +LATANOPROST2.5 ML OU; +NATURE S BLEND; +NOVOLOG100 U/ML SC; +TOUJEO300 U/ML SC
[2020-07-01 23:35] VITALS: Ht 157.5 cm; Wt 111.1 kg
[2020-07-02 02:22] LABS: PLATELET COUNT 325 x10^3mcL (179-408)
[2020-07-02 02:42] LABS: ALKALINE PHOSPHATASE 47 U/L (46-116); ALT/SGPT 34 U/L (14-59); AST/SGOT 21 U/L (15-37); BILIRUBIN TOTAL 0.21 mg/dL (0.20-1.00); CALCIUM 8.6 mg/dL (8.5-10.1); CARBON DIOXIDE 25.6 mmol/L (21-32); CHLORIDE SERUM 95 mmol/L (98-107); CREATININE SERUM 1.9 mg/dL (0.6-1.0); GLUCOSE SERUM 91 mg/dL (74-106); LIPASE 246 IU/L (73-393); POTASSIUM SERUM 4.6 mmol/L (3.5-5.1); SODIUM SERUM 130 mmol/L (136-145); TOTAL PROTEIN, SERUM 6.6 g/dL (6.4-8.2)
[2020-07-02 03:01] LABS: ALBUMIN 2.8 g/dL (3.4-5.0)
[2020-07-02 03:09] LABS: RED CELL DISTRIBUTION WIDTH 18.8 % (12.3-17.7)
[2020-07-02 04:28] LABS: UA SPECIFIC GRAVITY <=1.005 (1.005-1.035); microscopic required? YES; urine erythrocyte TRACE (NEGATIVE)
[2020-07-02 05:05] LABS: BAND NEUTROPHIL 2 % (0-10); MONOCYTE 2 % (0-7); SEGMENTED NEUTROPHILS 77 % (37-75); rbc morphology (normal/abnorm) ABNORMAL (NORMAL)
[2020-07-02 09:39] VITALS: BP 146/83
[2020-07-02 13:05] VITALS: BP 147/63
[2020-07-02 14:26] LABS: BASOPHIL % 0.3 % (0.2-1.3); PLATELET COUNT 322 x10^3mcL (179-408)
[2020-07-02 14:40] LABS: RED CELL DISTRIBUTION WIDTH 19.1 % (12.3-17.7)
[2020-07-02 15:02] LABS: rbc morphology (normal/abnorm) ABNORMAL (NORMAL)
[2020-07-02 15:18] LABS: TOTAL IRON BINDING CAPACITY 358 ug/dL (250-450)
[2020-07-02 15:21] LABS: IRON 22 ug/dL (50-170)
[2020-07-02 17:25] VITALS: BP 162/70
[2020-07-02 20:29] VITALS: BP 135/63
[2020-07-03 05:58] VITALS: BP 176/71
[2020-07-03 06:35] LABS: RED BLOOD CELLS 1.74 M/mm3 (4.10-5.10)
[2020-07-03 07:15] LABS: BASOPHIL % 0.5 % (0.2-1.3); PLATELET COUNT 297 x10^3mcL (179-408)
[2020-07-03 07:33] LABS: RED CELL DISTRIBUTION WIDTH 17.4 % (12.3-17.7)
[2020-07-03 08:04] LABS: ALKALINE PHOSPHATASE 45 U/L (46-116); ALT/SGPT 32 U/L (14-59); AST/SGOT 16 U/L (15-37); BILIRUBIN TOTAL 0.6 mg/dL (0.20-1.00); CALCIUM 8.5 mg/dL (8.5-10.1); CARBON DIOXIDE 24.2 mmol/L (21-32); CHLORIDE SERUM 97 mmol/L (98-107); CREATININE SERUM 1.6 mg/dL (0.6-1.0); GLUCOSE SERUM 134 mg/dL (74-106); MAGNESIUM 1.8 mg/dL (1.8-2.4); POTASSIUM SERUM 3.9 mmol/L (3.5-5.1); SODIUM SERUM 133 mmol/L (136-145); TOTAL PROTEIN, SERUM 6.7 g/dL (6.4-8.2)
[2020-07-03 08:26] LABS: ALBUMIN 2.8 g/dL (3.4-5.0)
[2020-07-03 09:01] VITALS: BP 196/87
[2020-07-03 15:35] VITALS: BP 151/81
[2020-07-03 18:04] VITALS: BP 141/61
[2020-07-03 20:52] VITALS: BP 135/59
[2020-07-04 05:31] VITALS: BP 144/53
[2020-07-04 07:50] LABS: BASOPHIL % 0.6 % (0.2-1.3); PLATELET COUNT 307 x10^3mcL (179-408)
[2020-07-04 08:24] LABS: RED CELL DISTRIBUTION WIDTH 17.6 % (12.3-17.7)
[2020-07-04 08:28] LABS: ALKALINE PHOSPHATASE 54 U/L (46-116); ALT/SGPT 33 U/L (14-59); AST/SGOT 12 U/L (15-37); BILIRUBIN TOTAL 0.37 mg/dL (0.20-1.00); CALCIUM 8.8 mg/dL (8.5-10.1); CARBON DIOXIDE 24.4 mmol/L (21-32); CHLORIDE SERUM 96 mmol/L (98-107); CREATININE SERUM 1.9 mg/dL (0.6-1.0); GLUCOSE SERUM 314 mg/dL (74-106); MAGNESIUM 1.9 mg/dL (1.8-2.4); POTASSIUM SERUM 4.1 mmol/L (3.5-5.1); SODIUM SERUM 132 mmol/L (136-145); TOTAL PROTEIN, SERUM 6.5 g/dL (6.4-8.2)
[2020-07-04 08:41] LABS: ALBUMIN 2.9 g/dL (3.4-5.0)
[2020-07-04 08:52] VITALS: BP 142/49
[2020-07-04 12:00] VITALS: BP 104/47
[2020-07-04 17:04] VITALS: BP 117/45
[2020-07-04 20:49] VITALS: BP 126/53
[2020-07-05 05:06] VITALS: BP 132/54
[2020-07-05 06:30] LABS: ALKALINE PHOSPHATASE 52 U/L (46-116); ALT/SGPT 29 U/L (14-59); AST/SGOT 13 U/L (15-37); BILIRUBIN TOTAL 0.3 mg/dL (0.20-1.00); CALCIUM 8.4 mg/dL (8.5-10.1); CARBON DIOXIDE 21.6 mmol/L (21-32); CHLORIDE SERUM 97 mmol/L (98-107); CREATININE SERUM 2.1 mg/dL (0.6-1.0); GLUCOSE SERUM 345 mg/dL (74-106); MAGNESIUM 1.8 mg/dL (1.8-2.4); POTASSIUM SERUM 3.7 mmol/L (3.5-5.1); SODIUM SERUM 129 mmol/L (136-145); TOTAL PROTEIN, SERUM 6.3 g/dL (6.4-8.2)
[2020-07-05 07:02] LABS: ALBUMIN 2.5 g/dL (3.4-5.0)
[2020-07-05 07:22] LABS: BASOPHIL % 0.5 % (0.2-1.3); PLATELET COUNT 280 x10^3mcL (179-408)
[2020-07-05 08:09] LABS: RED CELL DISTRIBUTION WIDTH 17.8 % (12.3-17.7)
[2020-07-05 08:33] VITALS: BP 139/64
[2020-07-05] MEDS ORDERED: FERL PO (11:59)
[2020-07-05] MEDS ORDERED: DIF100 PO (12:00)
[2020-07-05] MEDS ORDERED: AUGMENTIN 875-1 EACH PO (12:02)
[2020-07-05 12:24] VITALS: BP 152/72
[2020-07-05 16:55] VITALS: BP 155/61
[2020-07-05 21:47] VITALS: BP 133/49
[2020-07-06 05:23] VITALS: BP 156/63
[2020-07-06 07:21] LABS: BASOPHIL % 0.7 % (0.2-1.3); PLATELET COUNT 295 x10^3mcL (179-408)
[2020-07-06 07:31] LABS: RED CELL DISTRIBUTION WIDTH 17.3 % (12.3-17.7)
[2020-07-06 07:33] LABS: ALKALINE PHOSPHATASE 58 U/L (46-116); ALT/SGPT 27 U/L (14-59); AST/SGOT 13 U/L (15-37); BILIRUBIN TOTAL 0.3 mg/dL (0.20-1.00); CALCIUM 8.3 mg/dL (8.5-10.1); CARBON DIOXIDE 22.9 mmol/L (21-32); CHLORIDE SERUM 100 mmol/L (98-107); CREATININE SERUM 1.7 mg/dL (0.6-1.0); GLUCOSE SERUM 295 mg/dL (74-106); MAGNESIUM 1.9 mg/dL (1.8-2.4); POTASSIUM SERUM 3.6 mmol/L (3.5-5.1); SODIUM SERUM 133 mmol/L (136-145); TOTAL PROTEIN, SERUM 6.5 g/dL (6.4-8.2)
[2020-07-06 07:34] LABS: ALBUMIN 2.5 g/dL (3.4-5.0)
[2020-07-06 08:38] VITALS: BP 196/90
[2020-07-06 08:45] VITALS: BP 196/90
[2020-07-06 12:53] VITALS: BP 154/82
[2020-07-06 12:58] VITALS: BP 154/82
== END 2020-07-06 16:30 | disposition home or self-care (01) | DRG 377 ==
LOC: ED 22:55 → DU 07-02 05:09
PROVIDERS: Emergency Medicine; Internal Medicine Gastroenterology; ADMIT Internal Medicine; ATTEND Internal Medicine
PROC: 30233N1 Transfusion of Nonautologous Red Blood Cells into Peripheral Vein, Percutaneous Approach (ICD-10-PCS; 2020-07-02)
PROC: 0DB68ZX Excision of Stomach, Via Natural or Artificial Opening Endoscopic, Diagnostic (ICD-10-PCS; principal; 2020-07-04 11:45)
PROC: 0W3P8ZZ Control Bleeding in Gastrointestinal Tract, Via Natural or Artificial Opening Endoscopic (ICD-10-PCS; 2020-07-04 11:45)
DX: K25.4 Chronic or unspecified gastric ulcer with hemorrhage (principal); N17.0 Acute kidney failure with tubular necrosis; A09 Infectious gastroenteritis and colitis, unspecified; Z68.44 Body mass index [BMI] 60.0-69.9, adult; N39.0 Urinary tract infection, site not specified; E87.1 Hypo-osmolality and hyponatremia; R65.10 Systemic inflammatory response syndrome (SIRS) of non-infectious origin without acute organ dysfunction; E44.0 Moderate protein-calorie malnutrition; Z20.822 Contact with and (suspected) exposure to COVID-19; D64.9 Anemia, unspecified; E78.5 Hyperlipidemia, unspecified; E66.9 Obesity, unspecified; F41.9 Anxiety disorder, unspecified; D72.829 Elevated white blood cell count, unspecified; E03.9 Hypothyroidism, unspecified; D63.8 Anemia in other chronic diseases classified elsewhere; N18.30 Chronic kidney disease, stage 3 unspecified; I12.9 Hypertensive chronic kidney disease with stage 1 through stage 4 chronic kidney disease, or unspecified chronic kidney disease; E78.00 Pure hypercholesterolemia, unspecified; Z90.49 Acquired absence of other specified parts of digestive tract; Z79.899 Other long term (current) drug therapy; Z79.891 Long term (current) use of opiate analgesic; Z79.01 Long term (current) use of anticoagulants; Z88.5 Allergy status to narcotic agent; Z95.828 Presence of other vascular implants and grafts; Z79.4 Long term (current) use of insulin; Z83.3 Family history of diabetes mellitus; Z82.49 Family history of ischemic heart disease and other diseases of the circulatory system; K31.89 Other diseases of stomach and duodenum
CPT/HCPCS: 43235; 82962; 83880; C9113; G0378; J0696; J1200; J1610; J1815; J1885; J1940; J2250; J2270; J2310; J2405; J2543; J2765; J2916; J3010; J3490; J7030; J7040; J7050; P9016